=== PATIENT | female | born 1960 | race Caucasian/White ===

== ENCOUNTER 2020-03-12 18:22 | Emergency (ER) | payer OTHER, SELFPAY ==
--- NOTE | ~2020-03-12 | XR_ITS ---
XR chest 1V portable 03/12/2020 19:06 Indication: Shortness of breath, Covid Procedure: AP portable chest Comparison: No prior studies for comparison. Findings: Patchy bilateral infiltrates, compatible with pneumonia. Heart size normal. No pneumothorax . No acute osseous abnormality. Impression: 1: Patchy bilateral infiltrates, compatible with pneumonia. Reviewed, dictated and finalized at location A. PROFESSIONAL Impression: 1: Patchy bilateral infiltrates, compatible with pneumonia.
[2020-03-12 18:24] VITALS: BP 148/109; PULSE 73; RESP 20; TEMP 36.1; O2SAT 100
--- NOTE | 2020-03-12 18:30 | ECG_ITS ---
Measurements Intervals [place] Rate: 82 P: 65 DC: 171 QRS: 39 QRSD: 90 T: 8 QT: 402 QTc: 471 Interpretive Statements SINUS RHYTHM BORDERLINE ST-T WAVE ABNORMALITY- ANT/INF LEADS BASELINE ARTIFACT- I, III, AVL BORDERLINE ECG Electronically Signed On 03-12-2020 18:59:48 [facility] by Vik Martínez D.O.
[2020-03-12 18:39] LABS: Basophils Percent Auto 0.1 % (0.2-1.2); Eosinophils Percent Auto 0.1 % (0-4.4); Hematocrit 40.4 % (37.0-47.0); Hemoglobin 13.3 g/dL (12.0-15.0); Immature Granulocyte Absolute 0.02 K/mm3 (0.00-0.031); Immature Granulocyte Percent A 0.2 % (0-0.5); Lymphocytes Absolute Auto 1.05 K/mm3 (0.9-3.2); Lymphocytes Percent Auto 11.9 % (18.3-44.2); Mean Corpuscular HGB Conc 32.9 g/dl (32-36); Mean Corpuscular Hemoglobin 27.9 pg (26-34); Mean Corpuscular Volume 84.7 fl (80-100); Mean Platelet Volume 10.9 fl (7.4-10.4); Monocytes Absolute Auto 0.2 K/mm3 (0.1-0.6); Monocytes Percent Auto 1.8 % (2.6-8.5); Neutrophils Absolute Auto 7.6 K/mm3 (1.3-6.7); Neutrophils Percent Auto 85.9 % (45.5-73.1); Platelet Count Result 266 k/mm3 (150-375); Red Blood Count 4.77 M/mm3 (4.2-5.4); Red Cell Distribution Width 14.5 % (11.5-14.5); White Blood Count 8.9 K/mm3 (4.5-10.0)
[2020-03-12 18:47] VITALS: PULSE 75
[2020-03-12 18:50] LABS: Anion Gap 10 mmol/L (8-16); Blood Urea Nitrogen 12 mg/dL (7-17); Calcium 9.5 mg/dL (8.4-10.2); Carbon Dioxide 26 mmol/L (22-30); Chloride 104 mmol/L (98-107); Estimated CRCL calculation 57 ml/min; Estimated Glomerular Filt Rate > 60; Glucose 135 mg/dL (65-105); Potassium 3.7 mmol/L (3.4-5.0); Sodium 140 mmol/L (137-145)
[2020-03-12 19:47] LABS: Alveolar/Arterial O2 Gradient 24.9 mmHg; Base Excess ABG 0.9 mEq/l (+/-2.0); Fractional Inspired Oxygen 21 %; HCO3 ABG 22.4 mEq/l (22.0-26.0); Oxygen Content ABG 18.4 %vol (16.0-22.0); Oxygen Saturation ABG 97.9 % (95.0-100.0); Oxyhemoglobin 96.6 % THb (90.0-100.0); PCO2 ABG 27.4 mmHg (35.0-45.0); PO2 FiO2 Ratio Arterial Blood 4.38 %; Total Hemoglobin 13.5 g/dL (12.0-18.0)
[2020-03-12 19:48] LABS: Modified Allen's Test Pass; Site Drawn RIGHT RADIAL; pH ABG 7.531 (7.350-7.450)
[2020-03-12 19:49] LABS: Device ROOM AIR
[2020-03-12 20:33] VITALS: BP 160/93; PULSE 70; RESP 16; O2SAT 100
--- NOTE | 2020-03-12 20:43 | ED.SOB ---
HPI - SOB/Dyspnea General Chief Complaint: Shortness of Breath/Dyspnea Stated Complaint: SOB Time Seen by Provider: 03/12/20 19:24 Source: patient Mode of arrival: ambulatory Limitations: no limitations History of Present Illness HPI Narrative: 60-year-old female History of MS She reports that she was positive for Covid on March 06 at [facility] after having been ill for about 1 day Presents to the ER here today because she still feels relatively poorly 6 days later She was prescribed an antibiotic for UTI, albuterol inhaler which she has used rarely, and also given 6 mg a day of Decadron for 10 days However she still complains of mild general weakness, mild shortness of breath, and a general tightness in her chest She reports that her home pulse oximeter at night sometimes shows readings that have been as low as 91% although typically they are as now 98 to 100% She has an occasional cough which is nonproductive Also she did not take her MS injection because she was not sure if she should or not MD elicited complaint: shortness of breath Onset (ago): day(s) Context: recent illness Treatment prior to arrival: bronchodilator Related Data Home Medications Medication Instructions Recorded Confirmed calcium carbonate-vitamin D3 1 tablet PO DAILY 03/12/20 [Oysco 500/D] fluticasone propionate [Flonase] 1 spray INTRANASAL BID 03/12/20 glatiramer 40 mg SUBCUT 3XW 03/12/20 hydrochlorothiazide 25 mg PO DAILY 03/12/20 loratadine 10 mg PO DAILY 03/12/20 omeprazole 20 mg PO BID 03/12/20 Allergies Allergy/AdvReac Type Severity Reaction Status Date / Time metronidazole Allergy Other Verified 03/12/20 18:43 Penicillins Allergy Hives Verified 03/12/20 18:41 Sulfa (Sulfonamide Allergy Cramping Verified 03/12/20 18:42 Antibiotics) of the Muscles Review of Systems Review of Systems: All systems reviewed & are unremarkable except as noted in HPI and below Constitutional: Constitutional: Denies chills, Reports fatigue, Reports fever(s), Denies headache(s) and Reports weakness Eyes: Eyes: Reports no additional eye complaints and Denies change in vision ENT: Denies headache(s), Denies epistaxis, Denies nasal congestion and Denies sore throat Cardiovascular: Cardiovascular: Denies chest pain (Tight feeling), Denies leg edema, Denies radiating jaw, neck or arm pain, Denies palpitations and Denies dyspnea Respiratory: Respiratory: Reports cough, Reports dyspnea and Denies wheezing Gastrointestinal: Gastrointestinal: Denies abdominal pain, Denies diarrhea, Denies nausea and Denies vomiting Genitourinary: Genitourinary: Denies hematuria, Denies urinary frequency and Denies dysuria Musculoskeletal: Musculoskeletal: Denies deformity, Denies arthralgias, Denies joint swelling, Denies muscle weakness and Denies numbness Integumentary/Breasts: Skin/Breast: Denies rash and Denies wounds Neurologic: Denies headache(s), Denies focal weakness, Reports numbness and Denies weakness Psychiatric: Psychiatric: Reports no additional psychiatric complaints Endocrine: Endocrine: Denies fatigue and Denies palpitations Hematologic/Lymphatic: Hematologic/Lymphatic: Denies easy bleeding and Denies easy bruising Allergic/Immunologic: Allergic/Immunologic: Denies wheezing Exam Const: General: no acute distress, well developed, alert and awake Nutritional Appearance: well nourished Orientation/consciousness: patient oriented x3 (alert) Limitations: no limitations HENMT: Head: normocephalic and atraumatic Ears: external ears normal General nose exam: No nasal discharge present and no epistaxis Face and sinus: face symmetric Eyes: Conjunctivae: conjunctivae normal Sclera: sclerae normal EOM: EOMs intact bilaterally Neck: Neck: normal visual inspection, supple and no JVD Chest: Chest palpation & inspection: deferred Resp: Effort & Inspection: normal respiratory effort Auscultation: clear to auscultation bilat
[2020-03-12 21:08] VITALS: BP 147/82; PULSE 73; RESP 16; TEMP 36.8; O2SAT 99
== END 2020-03-12 21:09 | disposition home or self-care (01) ==
PROVIDERS: Emergency Provider Emergency Medicine
DX: U07.1 COVID-19 (principal); G35 Multiple sclerosis; R94.31 Abnormal electrocardiogram [ECG] [EKG]; R91.8 Other nonspecific abnormal finding of lung field
CPT/HCPCS: 36415; 36600; 71045; 80048; 82805; 85025; 93005; 99284